=== PATIENT | female | born 1980 | race Caucasian/White ===

== ENCOUNTER → 2017-10-15 | Outpatient (CLI) | payer OTHER ==
[~2017-10-15] MED LIST: BUPR150ER PO; CODGUAEL PO; Cipro500 MG PO; ERGO50000 PO; Flonase 0.05% N16 GM; IBUP800 PO; Norco 5-325 Ta1 EACH PO; OXYACE5T PO; Pyridium200 MG PO; Verotin-Gr Cap1 EACH PO; Zofran4 MG PO; Zofran8 MG PO
[2017-10-15 14:01] LABS: Specimen Source CERVIX
[2017-10-16 09:46] LABS: Source Cervix
== END ==
LOC: OLS 13:52 → LAB SHORT 13:52
PROVIDERS: Nurse Practitioner Women's Health
DX: A56.09 Other chlamydial infection of lower genitourinary tract (principal)
CPT/HCPCS: 87491

== ENCOUNTER → 2018-07-25 | Outpatient (CLI) | payer OTHER ==
[2018-07-26 14:08] LABS: HPV 16 Negative (Negative); HPV 18 Negative (Negative); HPV OTHER HR TYPES Negative (Negative)
== END ==
LOC: LAB 12:23 → LAB SHORT 12:23
PROVIDERS: Nurse Practitioner Women's Health
DX: Z12.4 Encounter for screening for malignant neoplasm of cervix (principal); Z91.89 Other specified personal risk factors, not elsewhere classified
CPT/HCPCS: 87624; G0123

== ENCOUNTER → 2018-08-23 | Outpatient (CLI) | payer OTHER ==
[~2018-08-23] MED LIST changes: +BENZ100A PO
== END | disposition home or self-care (01) ==
LOC: LAB SHORT 11:23 → LAB 11:23
DX: N64.52 Nipple discharge (principal)
CPT/HCPCS: 87070; 87075; 87205

== ENCOUNTER → 2018-10-03 | Outpatient (CLI) | payer OTHER ==
[2018-10-03 12:25] LABS: Source, Urine Catheter
[2018-10-03 12:58] LABS: Bilirubin, Urine Neg (Neg); Blood, Urine 3+ (Neg); Glucose Qualitative, Urine Neg (Neg); Ketones, Urine Neg (Neg); Leukocyte Esterase, Urine 1+ (Neg); Nitrite, Urine Neg (Neg); Protein, Urine 1+ (Neg); Urobilinogen, Urine NORM (Normal)
[2018-10-03 13:19] LABS: Appearance, Urine Hazy (Clear); Color, Urine Yellow (P-Yellow)
[2018-10-03 13:22] LABS: Squamous Epithelial Cells Few /hpf (Few); White Blood Cells, Urine 0-2 /hpf (0-5)
[2018-10-03 13:23] LABS: Bacteria Rare /hpf
[2018-10-04 22:07] LABS: CHLAMYDIA TRACHOMATIS, NAA Negative (Negative); NEISSERIA GONORRHOEAE, NAA Negative (Negative)
== END | disposition home or self-care (01) ==
LOC: LAB 12:24 → LAB SHORT 12:24
PROVIDERS: Nurse Practitioner Women's Health
DX: N89.8 Other specified noninflammatory disorders of vagina (principal); R30.0 Dysuria; R39.89 Other symptoms and signs involving the genitourinary system; Z20.2 Contact with and (suspected) exposure to infections with a predominantly sexual mode of transmission; Z72.51 High risk heterosexual behavior
CPT/HCPCS: 81001